=== PATIENT | female | born 1955 | race Caucasian/White ===

== ENCOUNTER 2023-01-17 17:36 | Emergency (ER) | payer MEDICARE, BC ==
[2023-01-17] MEDS ORDERED: Ketorolac 60 MG/2 ML SDV IM ONE (18:52)
== END 2023-01-17 19:54 | disposition home or self-care (01) ==
LOC: JD.ED 17:36
DX: S92.321A Displaced fracture of second metatarsal bone, right foot, initial encounter for closed fracture (principal); W20.8XXA Other cause of strike by thrown, projected or falling object, initial encounter
CPT/HCPCS: 73630; 96372; 99283; J1885